=== PATIENT | female | born 1975 | race Two or more races ===

== ENCOUNTER 2024-08-11 10:11 | Emergency (ER) | payer OTHER ==
[~2024-08-11] VITALS: Ht 162.6 cm; Wt 65.8 kg
[2024-08-11] MEDS ORDERED: RINGERS SOLUTION,LACTATED 1,000 ML IV STA (11:13)
[2024-08-11 11:50] LABS: HEMATOCRIT 25.8 % (36.0-45.00); MEAN CELL VOLUME 71.9 fL (80.00-100.00); MEAN CORPUSCULAR HEMOGLOBIN 22.3 pg (27.00-32.0); MEAN CORPUSCULAR HGB CONC 31.1 g/dl (32.0-36.0); RED BLOOD COUNT 3.58 M/uL (4.00-6.00); RED CELL DISTRIBUTION WIDTH 20.2 % (11.5-14.5)
[2024-08-11 12:16] LABS: PLATELET COUNT 411 K/uL (150-450)
[2024-08-11 13:38] LABS: ALKALINE PHOSPHATASE 56 U/L (50-136); ALT/SGPT 16 U/L (12-78); ANION GAP 13 (10.0-20.0); AST/SGOT 16 U/L (15-37); BILIRUBIN TOTAL 0.19 mg/dL (0.3-1.2); BILIRUBIN,CONJUGATED < 0.10 mg/dL (0.0-0.2); BILIRUBIN,UNCONJUGATED 0.09 mg/dL (0.0-0.6); BLOOD UREA NITROGEN 11 mg/dL (7-18); BUN CREA RATIO 27 (7.0-25.0); CALCIUM 7.2 mg/dL (8.5-10.1); CARBON DIOXIDE 21 mEq/L (21-32); CHLORIDE 113 mmol/L (98-107); CREATININE SERUM 0.41 mg/dL (0.55-1.02); GFR 164.88; GLUCOSE FASTING 66 mg/dL (65-100); OSMOLALITY SERUM 284 MOSM/KG (275-295); POTASSIUM 3.37 mEq/L (3.5-5.1); SODIUM 144 mmol/L (136-145); TOTAL PROTEIN 6.5 gm/dL (6.4-8.2)
== END 2024-08-11 16:31 | disposition home or self-care (01) ==
LOC: ER 10:11
PROVIDERS: General Practice
DX: T67.5XXA Heat exhaustion, unspecified, initial encounter (principal); F32.89 Other specified depressive episodes; E13.649 Other specified diabetes mellitus with hypoglycemia without coma